=== PATIENT | male | born 1960 | race Caucasian/White ===

== ENCOUNTER → 2021-05-26 10:18 | Outpatient (CLI) | payer OTHER, BC, SELFPAY ==
--- NOTE | ~2021-05-26 | XR_ITS ---
XR_[id number]_CR DATE: 05/26/2021 10:42 INDICATION: Neck pain. Patient fell one month ago. TECHNIQUE: AP, open-mouth, odontoid and lateral views COMPARISON: None FINDINGS: There is reversal of cervical curvature. C1 and C2 are normally aligned and the odontoid process is intact. There is severe degenerative disc disease at C5-6 with very prominent anterior spurring and mild retr olisthesis. There is very prominent anterior spurring at C4-5 as well, but the interspace is relative ly preserved. No fracture or dislocation or locked facet or prevertebral soft tissue swelling. IMPRESSION: Reversal of cervical curvature Severe degenerative disc disease, prominent spurring and mild retrolisthesis at C5-6 Prominent anterior spurring at C4-5 Reviewed, dictated and finalized at [facility]. Reviewed, dictated and finalized at location [facility].
--- NOTE | ~2021-05-26 | XR_ITS ---
XR knee LT 3V DATE: 05/26/2021 10:42 INDICATION: Medial left knee pain TECHNIQUE: 3 views COMPARISON: None FINDINGS: Prominent patellar enthesopathy at the insertions of the quadriceps and patellar tendons. Mild periarticular spurring at the medial compartment and lateral compartment consistent with mild os teoarthritis. No fracture or dislocation or joint effusion. No radiopaque intra-articular loose body or chondrocalc inosis. No periosteal reaction or bone destruction. IMPRESSION: Prominent patellar enthesopathy at quadriceps and patellar tendon insertion sites Mild osteoarthritis Reviewed, dictated and finalized at location [facility]. IMPRESSION: Prominent patellar enthesopathy at quadriceps and patellar tendon i nsertion sites Mild osteoarthritis
== END ==
PROVIDERS: PCP Internal Medicine; Visit Provider Internal Medicine
DX: M50.323 Other cervical disc degeneration at C6-C7 level (principal); M17.12 Unilateral primary osteoarthritis, left knee
CPT/HCPCS: 72040; 73562